=== PATIENT | female | born 1980 | race Caucasian/White ===

== ENCOUNTER 2021-05-28 07:00 | Emergency (ER) | payer OTHER, SELFPAY ==
[2021-05-28] MEDS ORDERED: Ondansetron PF 4 MG/2 ML Vial ONE (07:52)
[2021-05-28] MEDS ORDERED: Morphine 4 MG/ML VIAL ONE (07:52)
[2021-05-28 08:21] LABS: BHCG - Serum Negative (NEGATIVE); Pregs Control Background? CLEAR/WHITE (CLR/WHITE); Pregs Control Bar Appear? YES (CONTROL BAR)
[2021-05-28 08:22] LABS: #Lymphocytes 0.7 thou/uL (1.20-3.40); #Monocytes 0.4 thou/uL (0.11-0.59); #Neutrophils 3.9 thou/uL (1.40-6.50); %Basophils 0.5 % (0.0-1.0); %Eosinophils 0.4 % (0.0-10.0); %Lymphocytes 14.5 % (21.0-51.0); %Neutrophils 76.7 % (42.0-75.0); Mean Corpuscular Hemoglobin 29.6 pg (27.0-31.0); Mean Corpuscular Volume 89.9 fL (78.0-98.0); Mean Platelet Volume 7.4 fL (7.4-10.4); Platelet Count 142 thou/uL (130-400); Red Blood Cell (RBC) Count 4.73 mill/uL (4.20-5.40); White Blood Cell (WBC) Count 5.1 thou/uL (4.8-10.8)
[2021-05-28 08:36] LABS: ALT (SGPT) 36 U/L (8-55); AST (SGOT) 30 U/L (5-34); Albumin 3.4 g/dL (3.5-5.0); Alkaline Phosphatase 61 U/L (40-110); Anion Gap 9 mmol/L (10-20); BUN (Urea Nitrogen) 9 mg/dL (7.0-18.7); Bilirubin, Total 0.3 mg/dL (0.2-1.2); Calc. Creatinine Clearance 0 mL/min (70-130); Calcium 8.2 mg/dL (7.8-10.44); Carbon Dioxide 29 mmol/L (22-29); Chloride 102 mmol/L (98-107); Globulin 2.5 g/dL (2.4-3.5); Glucose 101 mg/dL (70-105); Lipase 46 U/L (8-78); Potassium 4.1 mmol/L (3.5-5.1); Protein, Total 5.9 g/dL (6.0-8.3); Sodium 136 mmol/L (136-145)
[2021-05-28 09:58] LABS: SARS-CoV-2 NAA Rapid Test DETECTED (NotDetected)
[2021-05-28] MEDS ORDERED: Boostrix 0.5 ML (Tdap) VIAL ONE (10:07)
== END 2021-05-28 12:14 | disposition home or self-care (01) ==
LOC: ERS 07:00
DX: S01.81XA Laceration without foreign body of other part of head, initial encounter (principal); U07.1 COVID-19; K59.00 Constipation, unspecified; M43.16 Spondylolisthesis, lumbar region; R91.8 Other nonspecific abnormal finding of lung field; F41.9 Anxiety disorder, unspecified; Z79.899 Other long term (current) drug therapy; W19.XXXA Unspecified fall, initial encounter
CPT/HCPCS: 0240U; 12011; 70450; 71045; 74177; 80053; 83690; 84484; 84703; 85025; 90471; 90715; 93005; 96374; 96375; J2270; J2405